=== PATIENT | female | born 1980 | race Caucasian/White ===

== ENCOUNTER 2017-02-27 14:31 | Inpatient (IN) | payer OTHER ==
[~2017-02-27] VITALS: Ht 160 cm; Wt 94.8 kg
[2017-02-27 15:15] VITALS: BP 118/75
[2017-02-27] MEDS ORDERED: PNV1TABL25 PO (16:19)
[2017-02-27] MEDS ORDERED: 0.9 % SODIUM CHLORIDE 10 ML DISP.SYRIN. IV PRN ×2 (16:30→19:15)
[2017-02-27] MEDS ORDERED: OXYTOCIN 30 UNIT/500 ML PREMIX 500 ML IV PRN ×2 (16:30→19:15)
[2017-02-27] MEDS ORDERED: CITRIC ACID/SODIUM CITRATE 30 ML SOLUTION. PO PRN (16:30)
[2017-02-27] MEDS ORDERED: MORPHINE PF 5 MG/10 ML VIAL. ONE (16:41)
[2017-02-27] MEDS ORDERED: fentaNYL PF VIAL 100 MCG/2 ML VIAL ONE (16:41)
[2017-02-27] MEDS: IV RINGERS,LACTATED 1000ML 1,000 ML IV PRN ×2 (16:48→19:22)
[2017-02-27 16:50] LABS: BILIRUBIN,URINE NEGATIVE (NEG); GLUCOSE,URINE NEGATIVE (NEG); NITRITE,URINE NEGATIVE (NEG); PROTEIN,URINE NEGATIVE (NEG-TRACE); UROBILINOGEN,URINE 0.2 mg/dL (0.2 mg/dL)
[2017-02-27 17:01] LABS: BACTERIA,URINE MANY /HPF (0-FEW); RBC,URINE 0 /HPF (0-2); SQUAMOUS EPITHELIAL CELL,UR MANY /LPF; WBC,URINE OCC /HPF (0-4)
[2017-02-27 17:37] LABS: HEMATOCRIT 34.9 % (36.0-47.0); HEMOGLOBIN 12.3 g/dL (12.0-15.5); RED BLOOD COUNT 3.82 x10^6/uL (3.50-5.40); RED CELL DISTRIBUTION WIDTH 14.6 % (11.5-14.5); WHITE BLOOD COUNT 8.6 x10^3/uL (4.0-11.0)
--- NOTE | 2017-02-27 17:47 | PDOC1 ---
OB - History Hx of Present Care: Good Care Ultrasounds: Normal mid trimester US Obstetrical Complications: None Medical Complications: None Past Family/Social History * Past Medical, Surgical, Family and Obstetric Histories reviewed from chart. Rubella: Immune RPR/VDRL: Negative GBS Status: Positive HBsAG: Negative OB - Chief Complaint & HPI Date of Admission: Date of Admission: Feb 27, 2017 at 14:31 Chief Complaint/History : 6 Para: 5 EGA: 38 Reason for admission: active labor Indication for : desires repeat Admission Nurse Assessment Rev: Yes Problems: OB - Admission Exam Physical Exam Vitals: VS - Last 72 Hours, by Label Date Time Temp Pulse Resp B/P (MAP) Pulse Ox O2 Delivery O2 Flow Rate FiO2 02/27/17 15:15 98.2 20 118/75 (89) Room Air 98.2 HEENT: Normal Heart: Regular Rate Lungs: Clear Abdomen: Gravid, Tender Extremities: Edema Reflexes: Normal Cervical Dilatation: Fingertip Effacement: 100% Station: -3 Membranes: Intact Heart Rate: Normal Accelerations: Accelerations Present Decelerations: No decelerations Contractions on Admission: 6-10 Minutes Apart Intensity: Firm Text A: 38 wks IUP Previous c/s x 5 Active labor GBS positive P: Admit for repeat c/s possible c-hysterectomy. Pt. counseled on risks, benefits and expectations. Counseled specifically on c-hysterectomy and placenta accreta. JEANE CATHERINE Jr, MD Feb 27, 2017 17:47
[2017-02-27] MEDS ORDERED: PHENYLEPHRINE in 0.9% NACL PF 1 MG/10 ML DISP.SYRIN. IV ONE ×2 (18:15→18:35)
[2017-02-27] MEDS ORDERED: LIDOCAINE 2% PF Vial for OR 5 ML VIAL. ONE (18:15)
[2017-02-27] MEDS ORDERED: OXYTOCIN 10 UNIT/ML VIAL. ONE ×3 (18:46→18:58)
[2017-02-27] MEDS ORDERED: SIMETHICONE 80 MG TAB.CHEW PO PRN (19:15)
[2017-02-27] MEDS ORDERED: ONDANSETRON PF 4 MG/2 ML VIAL. IV PRN (19:15)
[2017-02-27] MEDS ORDERED: KETOROLAC 30 MG/ML INJ. IV PRN (19:15)
[2017-02-27] MEDS ORDERED: MAG HYDROX/ALUMINUM HYD/SIMETH 30 ML ORAL.SUSP PO PRN (19:15)
[2017-02-27] MEDS ORDERED: ZOLPIDEM 5 MG TABLET. PO PRN (19:15)
[2017-02-27] MEDS ORDERED: diphenhydrAMINE ORAL ELIXIR 12.5 MG/5 ML ML PO PRN (19:15)
--- NOTE | 2017-02-27 19:15 | PDOC4 ---
OB Operative Note PRE OP DIAGNOSIS: Previoujs C- section (Active labor) POST OP DIAGNOSIS: Previous C- section (active labor) OPERATION PERFORMED: R [facility] Surgeon Dr. Sandra Parking Lot Supervisor Dr. Tan Anesthesia: Regional (Spinal) Blood Loss 800 ml Specimen placenta and OB Findings: Position (Breech), Sex (Male), (8/9), Weight (3380 Gram) Complications none Additional Remarks pt. JEANE Barkley Jr, MD Feb 27, 2017 19:15
[2017-02-27 20:15] VITALS: BP 121/75
--- NOTE | 2017-02-27 21:57 | OP ---
DATE OF SURGERY: PREOPERATIVE DIAGNOSES: 1. A 38 weeks intrauterine . 2. Previous x 5. 3. Active labor. POSTOPERATIVE DIAGNOSES: 1. A 38 weeks intrauterine . 2. Previous x 5. 3. Active labor. PROCEDURE: Repeat low-transverse section. SURGEON: Jeane Sandra MD HATCHERY SUPERVISOR: Dr. Tan. ANESTHESIA: Spinal. ESTIMATED BLOOD LOSS: 800 mL. COMPLICATIONS: None. FINDINGS: Viable male , Apgars 8 and 9, weight 3380 grams. Three-vessel cord placenta delivered manually. was in breech presentation as well, footling breech presentation. SUMMARY: A 36-year-old 6, para 5, 38 weeks, presented to the clinic with contractions and abdominal pain. The patient was sent to Labor and Delivery for evaluation and was found to be in active labor with regular contractions. She was counseled on the risks, benefits and expectations of repeat . She was also counseled on possible hysterectomy due to history being 5 or greater. She and her voiced clear understanding to proceed. DESCRIPTION OF PROCEDURE: The patient was taken to the surgery suite and placed in dorsal supine position. She was prepped with ChloraPrep and draped in a sterile fashion. After adequate anesthesia, a Pfannenstiel skin incision was made with scalpel down to the fascia. The fascia was extended laterally using Bovie cautery. There were multiple adhesions ____ down to the fascia as well as once past the fascia, the peritoneum was adhered to the fascia itself. There was a small window on the peritoneum, which we utilized to extend this incision inferiorly using blunt dissection and Metzenbaum scissors. Other adhesions were dissected away using Bovie cautery as well as Metzenbaum scissors. The Liam ring retractor was placed. Low transverse hysterotomy incision was made with a scalpel down to the amniotic sac. Hysterotomy incision was extended laterally and superiorly digitally. It was palpated that the was in footling breech presentation. Amniotomy was performed, which elicited a moderate amount of clear fluid. The feet were then grasped with fundal pressure. Infant was delivered all the way down to the subscapular region. The left arm was flexed and delivered. The infant was then rotated 180 degrees. The right arm was flexed and delivered with additional fundal pressure and the ___ procedure. The 's head was delivered in a smooth atraumatic manner. The was suctioned with a bulb syringe orally and nasally. The umbilical cord was clamped twice and cut. A viable male infant was handed to waiting nursing staff. Umbilical cord blood was then obtained. Three-vessel cord placenta was delivered manually. The uterus was exteriorized and cleared of clot and debris with a moist lap. The hysterotomy incision was reapproximated using 1-0 Vicryl suture in running locked fashion. Three [id number] sutures were placed for better hemostasis. The uterus palpated firm. The fallopian tubes and ovaries appeared normal bilaterally. Posterior cul-de-sac was cleared of clot and debris with moist lap. The uterus was then returned to the abdomen. The pericolic gutters were cleared of clot and debris with a moist lap. The hysterotomy incision was visualized and was hemostatic. Interceed was placed over the hysterotomy incision in an inverted T fashion. The Liam ring retractor was removed. The peritoneum was reapproximated using 1-0 Vicryl suture in a running fashion. The fascia was reapproximated from lateral to medial using 0 Vicryl suture. Insorb stapler was utilized to reapproximate the skin. The Prevena wound VAC was placed. The patient tolerated the procedure well and was taken to recovery room in stable condition. Sponge and needle count correct x 3. JEANE SANDRA MD DR: RAJ/gwyn JOB#: [id number] / [id number]
[2017-02-27 22:15] VITALS: BP 121/75
[2017-02-28] MEDS: oxyCODONE/APAP 5/325 1 TAB TABLET PO PRN ×3 (01:36→21:20)
[2017-02-28 02:30] VITALS: BP 116/81
[2017-02-28 05:15] VITALS: BP 116/81
[2017-02-28 06:19] LABS: BASO % 0 % (0-3); EOS % 1 % (0-3); HEMATOCRIT 34.1 % (36.0-47.0); HEMOGLOBIN 11.7 g/dL (12.0-15.5); LYMPH # 2.1 x10^3/uL (1.0-4.8); LYMPH % 17 % (24-48); MEAN CORPUSCULAR HEMOGLOBIN 32 pg (25-35); MEAN CORPUSCULAR HGB CONC 34 g/dL (31-37); MEAN CORPUSCULAR VOLUME 92 fL (79-100); MONO % 9 % (0-9); NEUT % 74 % (31-73); PLATELET COUNT 106 x10^3/uL (140-400); RED BLOOD COUNT 3.72 x10^6/uL (3.50-5.40); RED CELL DISTRIBUTION WIDTH 14.2 % (11.5-14.5); WHITE BLOOD COUNT 12.6 x10^3/uL (4.0-11.0)
[2017-02-28] MEDS ORDERED: FERROUS SULFATE 325 MG TABLET. PO SCH (08:00)
[2017-02-28] MEDS: IBUPROFEN 800 MG TABLET. PO PRN ×2 (09:29→17:27)
[2017-02-28 10:30] VITALS: BP 104/68
[2017-02-28] MEDS: DOCUSATE SODIUM 100 MG CAPSULE. PO PRN ×2 (12:25→21:18)
--- NOTE | 2017-02-28 12:56 | PDOC ---
OB Progress Note Date of Service 02/28/17 Time of Evaluation 1250 Notes Pt. feeling well. Pain controlled. Breast feeding. Lab Laboratory Tests Test 02/27/17 16:40 02/27/17 17:30 02/28/17 04:50 Urine Collection Type Unknown Urine Color Yellow Urine Clarity Clear Urine pH 6.0 Urine Specific [place] 1.010 Urine Protein Negative mg/dL (NEG-TRACE) Urine Glucose (UA) Negative mg/dL (NEG) Urine Ketones (Stick) Negative mg/dL (NEG) Urine Blood Negative (NEG) Urine Nitrite Negative (NEG) Urine Bilirubin Negative (NEG) Urine Urobilinogen Dipstick 0.2 mg/dL (0.2 mg/dL) Urine Leukocyte Esterase Negative (NEG) Urine RBC 0 /HPF (0-2) Urine WBC Occ /HPF (0-4) Urine Squamous Epithelial Cells Many /LPF Urine Bacteria Many /HPF (0-FEW) White Blood Count 8.6 x10^3/uL (4.0-11.0) 12.6 x10^3/uL (4.0-11.0) Red Blood Count 3.82 x10^6/uL (3.50-5.40) 3.72 x10^6/uL (3.50-5.40) Hemoglobin 12.3 g/dL (12.0-15.5) 11.7 g/dL (12.0-15.5) Hematocrit 34.9 % (36.0-47.0) 34.1 % (36.0-47.0) Mean Corpuscular Volume 91 fL (79-100) 92 fL (79-100) Mean Corpuscular Hemoglobin 32 pg (25-35) 32 pg (25-35) Mean Corpuscular Hemoglobin Concent 35 g/dL (31-37) 34 g/dL (31-37) Red Cell Distribution Width 14.6 % (11.5-14.5) 14.2 % (11.5-14.5) Platelet Count 111 x10^3/uL (140-400) 106 x10^3/uL (140-400) Neutrophils (%) (Auto) 74 % (31-73) Lymphocytes (%) (Auto) 17 % (24-48) Monocytes (%) (Auto) 9 % (0-9) Eosinophils (%) (Auto) 1 % (0-3) Basophils (%) (Auto) 0 % (0-3) Neutrophils # (Auto) 9.4 x10^3uL (1.8-7.7) Lymphocytes # (Auto) 2.1 x10^3/uL (1.0-4.8) Monocytes # (Auto) 1.1 x10^3/uL (0.0-1.1) Eosinophils # (Auto) 0.1 x10^3/uL (0.0-0.7) Basophils # (Auto) 0.0 x10^3/uL (0.0-0.2) Laboratory Tests Test 02/27/17 16:40 02/27/17 17:30 02/28/17 04:50 Urine Collection Type Unknown Urine Color Yellow Urine Clarity Clear Urine pH 6.0 Urine Specific [place] 1.010 Urine Protein Negative mg/dL (NEG-TRACE) Urine Glucose (UA) Negative mg/dL (NEG) Urine Ketones (Stick) Negative mg/dL (NEG) Urine Blood Negative (NEG) Urine Nitrite Negative (NEG) Urine Bilirubin Negative (NEG) Urine Urobilinogen Dipstick 0.2 mg/dL (0.2 mg/dL) Urine Leukocyte Esterase Negative (NEG) Urine RBC 0 /HPF (0-2) Urine WBC Occ /HPF (0-4) Urine Squamous Epithelial Cells Many /LPF Urine Bacteria Many /HPF (0-FEW) White Blood Count 8.6 x10^3/uL (4.0-11.0) 12.6 x10^3/uL (4.0-11.0) Red Blood Count 3.82 x10^6/uL (3.50-5.40) 3.72 x10^6/uL (3.50-5.40) Hemoglobin 12.3 g/dL (12.0-15.5) 11.7 g/dL (12.0-15.5) Hematocrit 34.9 % (36.0-47.0) 34.1 % (36.0-47.0) Mean Corpuscular Volume 91 fL (79-100) 92 fL (79-100) Mean Corpuscular Hemoglobin 32 pg (25-35) 32 pg (25-35) Mean Corpuscular Hemoglobin Concent 35 g/dL (31-37) 34 g/dL (31-37) Red Cell Distribution Width 14.6 % (11.5-14.5) 14.2 % (11.5-14.5) Platelet Count 111 x10^3/uL (140-400) 106 x10^3/uL (140-400) Neutrophils (%) (Auto) 74 % (31-73) Lymphocytes (%) (Auto) 17 % (24-48) Monocytes (%) (Auto) 9 % (0-9) Eosinophils (%) (Auto) 1 % (0-3) Basophils (%) (Auto) 0 % (0-3) Neutrophils # (Auto) 9.4 x10^3uL (1.8-7.7) Lymphocytes # (Auto) 2.1 x10^3/uL (1.0-4.8) Monocytes # (Auto) 1.1 x10^3/uL (0.0-1.1) Eosinophils # (Auto) 0.1 x10^3/uL (0.0-0.7) Basophils # (Auto) 0.0 x10^3/uL (0.0-0.2) Medications Current Medications Sodium Chloride (Normal Saline Flush) 3 ml QSHIFT PRN IV AFTER MEDS AND BLOOD DRAWS; Start 02/27/17 at 16:30 Ringer's Solution 1,000 ml @ 125 mls/hr Q8H PRN IV NAUSEA/VOMITING Last administered on 02/27/17 19:22; Start 02/27/17 at 16:30; Stop 02/28/17 at 08 :50; Status DC Citric Acid/ Sodium Citrate (Bicitra) 30 ml 1X PRN PRN PO DYSPEPSIA Last administered on 02/27/17 16:49; Start 02/27/17 at 16:30; Stop 02/28/17 at 16 :29 Cefazolin Sodium/ Dextrose 50 ml @ 100 mls/hr 1X ONCE IV Last administered on 02/27/17 16:49; Start 02/27/17 at 17:00; Stop 02/27/17 at 17:29; Status DC Oxytocin/Sodium Chloride 500 ml @ 0 mls/hr CONT PRN PRN IV Post delivery bleeding; Start 02/27/17 at 16:30 Morphine Sulfate (Morphine Preservative Free) 5 mg STK-MED ONCE .ROUTE ; Start 02/27/17 at 16:41; Stop 02/28/17 at 08:50; Status DC Fentanyl Citrate (Fentanyl 2ml Vial) 100 mcg STK-MED ONCE .ROUTE ; Start at 16:41; Stop 02/28/17 at 08:50; Status DC Phenylephrine HCl 1 mg STK-MED ONCE IV ; Start 02/27/17 at 18:15; Stop at 08:50; Status DC Lidocaine HCl (Lidocaine Pf 2% Vial) 5 ml STK-MED ONCE .ROUTE ; Start 02/27/17 at 18:15; Stop 02/28/17 at 08:50; Status DC Phenylephrine HCl 1 mg STK-MED ONCE IV ; Start 02/27/17 at 18:35; Stop at 08:50; Status DC Oxytocin (Pitocin) 10 unit STK-MED ONCE .ROUTE ; Start 02/27/17 at 18:46; Stop 02/28/17 at 08:50; Status DC Oxytocin (Pitocin) 10 unit STK-MED ONCE .ROUTE ; Start 02/27/17 at 18:58; Stop 02/28/17 at 08:50; Status DC Oxytocin (Pitocin) 10 unit STK-MED ONCE .ROUTE ; Start 02/27/17 at 18:58; Stop 02/28/17 at 08:50; Status DC Sodium Chloride (Normal Saline Flush) 3 ml QSHIFT PRN IV AFTER MEDS AND BLOOD DRAWS; Start 02/27/17 at 19:15 Oxytocin/Sodium Chloride 500 ml @ 125 mls/hr CONT PRN IV EXCESSIVE POST- BLEEDING; Start 02/27/17 at 19:15; Stop 02/28/17 at 03:14; Status DC Ibuprofen (Motrin) 800 mg PRN Q8HRS PRN PO INFLAMMATION Last administered on 09:29; Start 02/27/17 at 19:15 Ondansetron HCl (Zofran) 4 mg PRN Q6HRS PRN IV NAUSEA/VOMITING; Start at 19:15 Docusate Sodium (Colace) 100 mg PRN BID PRN PO CONSTIPATION Last administered on 02/28/17 12:25; Start 02/27/17 at 19:15 Al Hydroxide/Mg Hydroxide (Mylanta Plus Xs) 30 ml PRN Q4HRS PRN PO HEARTBURN / GAS; Start 02/27/17 at 19:15 Simethicone (Gas-X) 80 mg PRN AFTMEALHC PRN PO GAS / BLOATING; Start 02/27/17 at 19:15 Diphenhydramine HCl (Benadryl Oral Elixir) 12.5 mg PRN Q6HRS PRN PO ITCHING; Start 02/27/17 at 19:15 Ferrous Sulfate (Feosol) 325 mg BIDWMEALS PO ; Start 02/28/17 at 08:00; Stop 02/28/17 at 08:50; Status DC Zolpidem Tartrate (Ambien) 5 mg PRN QHS PRN PO INSOMNIA, MAY REPEAT X1; Start 02/27/17 at 19:15 Oxycodone/ Acetaminophen (Percocet 5/325) 2 tab PRN Q4HRS PRN PO MODERATE PAIN , SEVERE PAIN Last administered on 02/28/17t 12:25; Start 02/27/17 at 19:15 Ketorolac Tromethamine (Toradol) 30 mg PRN Q6HRS PRN IV PAIN; Start 02/27/17 at 19:15; Stop 03/04/17 at 19:14 Diphtheria/ Tetanus/Acell Pertussis (Boostrix) 0.5 ml ONCE ONCE VAX IM ; Start 03/01/17 at 09:00; Stop 03/01/17 at 09:01 Active Scripts Active Reported Tablet (Pnv Cmb#95/Ferrous Fumarate/Fa) 1 Each Tablet 1 Tab PO DAILY Exam Abd: soft, non tender, fundus firm Wound vac in place Assessment A: POD#1 s/p repeat c/s Plan of Care: Continue current Tx, Mgmt JEANE CATHERINE Jr, MD Feb 28, 2017 12:56
[2017-02-28 14:00] VITALS: BP 104/68
[2017-02-28 17:25] VITALS: BP 104/68
[2017-02-28 19:30] VITALS: BP 126/91
[2017-03-01] MEDS: IBUPROFEN 800 MG TABLET. PO PRN ×3 (03:13→21:04)
[2017-03-01] MEDS: oxyCODONE/APAP 5/325 1 TAB TABLET PO PRN ×6 (06:39→21:05)
[2017-03-01 06:46] VITALS: BP 116/83
[2017-03-01] MEDS ORDERED: DIPHTH,PERTUSS(ACELL),TET TOX 0.5 ML DISP.SYRIN. VAX IM ONE (09:00)
[2017-03-01 10:06] VITALS: BP 117/76
[2017-03-01] MEDS: DOCUSATE SODIUM 100 MG CAPSULE. PO PRN (10:19)
--- NOTE | 2017-03-01 12:20 | PDOC ---
OB Progress Note Date of Service 03/01/17 Time of Evaluation 1215 Notes Pt. feeling well. Pain controlled. Lochia minimal. Lab Laboratory Tests Test 02/27/17 16:40 02/27/17 17:30 02/28/17 04:50 Urine Collection Type Unknown Urine Color Yellow Urine Clarity Clear Urine pH 6.0 Urine Specific [place] 1.010 Urine Protein Negative mg/dL (NEG-TRACE) Urine Glucose (UA) Negative mg/dL (NEG) Urine Ketones (Stick) Negative mg/dL (NEG) Urine Blood Negative (NEG) Urine Nitrite Negative (NEG) Urine Bilirubin Negative (NEG) Urine Urobilinogen Dipstick 0.2 mg/dL (0.2 mg/dL) Urine Leukocyte Esterase Negative (NEG) Urine RBC 0 /HPF (0-2) Urine WBC Occ /HPF (0-4) Urine Squamous Epithelial Cells Many /LPF Urine Bacteria Many /HPF (0-FEW) White Blood Count 8.6 x10^3/uL (4.0-11.0) 12.6 x10^3/uL (4.0-11.0) Red Blood Count 3.82 x10^6/uL (3.50-5.40) 3.72 x10^6/uL (3.50-5.40) Hemoglobin 12.3 g/dL (12.0-15.5) 11.7 g/dL (12.0-15.5) Hematocrit 34.9 % (36.0-47.0) 34.1 % (36.0-47.0) Mean Corpuscular Volume 91 fL (79-100) 92 fL (79-100) Mean Corpuscular Hemoglobin 32 pg (25-35) 32 pg (25-35) Mean Corpuscular Hemoglobin Concent 35 g/dL (31-37) 34 g/dL (31-37) Red Cell Distribution Width 14.6 % (11.5-14.5) 14.2 % (11.5-14.5) Platelet Count 111 x10^3/uL (140-400) 106 x10^3/uL (140-400) RPR Titer Additional Testing Negative (Non Reactive) Neutrophils (%) (Auto) 74 % (31-73) Lymphocytes (%) (Auto) 17 % (24-48) Monocytes (%) (Auto) 9 % (0-9) Eosinophils (%) (Auto) 1 % (0-3) Basophils (%) (Auto) 0 % (0-3) Neutrophils # (Auto) 9.4 x10^3uL (1.8-7.7) Lymphocytes # (Auto) 2.1 x10^3/uL (1.0-4.8) Monocytes # (Auto) 1.1 x10^3/uL (0.0-1.1) Eosinophils # (Auto) 0.1 x10^3/uL (0.0-0.7) Basophils # (Auto) 0.0 x10^3/uL (0.0-0.2) Medications Current Medications Sodium Chloride (Normal Saline Flush) 3 ml QSHIFT PRN IV AFTER MEDS AND BLOOD DRAWS; Start 02/27/17 at 16:30 Ringer's Solution 1,000 ml @ 125 mls/hr Q8H PRN IV NAUSEA/VOMITING Last administered on 02/27/17 19:22; Start 02/27/17 at 16:30; Stop 02/28/17 at 08 :50; Status DC Citric Acid/ Sodium Citrate (Bicitra) 30 ml 1X PRN PRN PO DYSPEPSIA Last administered on 02/27/17 16:49; Start 02/27/17 at 16:30; Stop 02/28/17 at 16 :29; Status DC Cefazolin Sodium/ Dextrose 50 ml @ 100 mls/hr 1X ONCE IV Last administered on 02/27/17 16:49; Start 02/27/17 at 17:00; Stop 02/27/17 at 17:29; Status DC Oxytocin/Sodium Chloride 500 ml @ 0 mls/hr CONT PRN PRN IV Post delivery bleeding; Start 02/27/17 at 16:30 Morphine Sulfate (Morphine Preservative Free) 5 mg STK-MED ONCE .ROUTE ; Start 02/27/17 at 16:41; Stop 02/28/17 at 08:50; Status DC Fentanyl Citrate (Fentanyl 2ml Vial) 100 mcg STK-MED ONCE .ROUTE ; Start at 16:41; Stop 02/28/17 at 08:50; Status DC Phenylephrine HCl 1 mg STK-MED ONCE IV ; Start 02/27/17 at 18:15; Stop at 08:50; Status DC Lidocaine HCl (Lidocaine Pf 2% Vial) 5 ml STK-MED ONCE .ROUTE ; Start 02/27/17 at 18:15; Stop 02/28/17 at 08:50; Status DC Phenylephrine HCl 1 mg STK-MED ONCE IV ; Start 02/27/17 at 18:35; Stop at 08:50; Status DC Oxytocin (Pitocin) 10 unit STK-MED ONCE .ROUTE ; Start 02/27/17 at 18:46; Stop 02/28/17 at 08:50; Status DC Oxytocin (Pitocin) 10 unit STK-MED ONCE .ROUTE ; Start 02/27/17 at 18:58; Stop 02/28/17 at 08:50; Status DC Oxytocin (Pitocin) 10 unit STK-MED ONCE .ROUTE ; Start 02/27/17 at 18:58; Stop 02/28/17 at 08:50; Status DC Sodium Chloride (Normal Saline Flush) 3 ml QSHIFT PRN IV AFTER MEDS AND BLOOD DRAWS; Start 02/27/17 at 19:15 Oxytocin/Sodium Chloride 500 ml @ 125 mls/hr CONT PRN IV EXCESSIVE POST- BLEEDING; Start 02/27/17 at 19:15; Stop 02/28/17 at 03:14; Status DC Ibuprofen (Motrin) 800 mg PRN Q8HRS PRN PO INFLAMMATION Last administered on 03:13; Start 02/27/17 at 19:15 Ondansetron HCl (Zofran) 4 mg PRN Q6HRS PRN IV NAUSEA/VOMITING; Start at 19:15 Docusate Sodium (Colace) 100 mg PRN BID PRN PO CONSTIPATION Last administered on 03/01/17 10:19; Start 02/27/17 at 19:15 Al Hydroxide/Mg Hydroxide (Mylanta Plus Xs) 30 ml PRN Q4HRS PRN PO HEARTBURN / GAS; Start 02/27/17 at 19:15 Simethicone (Gas-X) 80 mg PRN AFTMEALHC PRN PO GAS / BLOATING; Start 02/27/17 at 19:15 Diphenhydramine HCl (Benadryl Oral Elixir) 12.5 mg PRN Q6HRS PRN PO ITCHING; Start 02/27/17 at 19:15 Ferrous Sulfate (Feosol) 325 mg BIDWMEALS PO ; Start 02/28/17 at 08:00; Stop 02/28/17 at 08:50; Status DC Zolpidem Tartrate (Ambien) 5 mg PRN QHS PRN PO INSOMNIA, MAY REPEAT X1; Start 02/27/17 at 19:15 Oxycodone/ Acetaminophen (Percocet 5/325) 2 tab PRN Q4HRS PRN PO MODERATE PAIN , SEVERE PAIN Last administered on 03/01/17t 10:19; Start 02/27/17 at 19:15 Ketorolac Tromethamine (Toradol) 30 mg PRN Q6HRS PRN IV PAIN; Start 02/27/17 at 19:15; Stop 03/04/17 at 19:14 Diphtheria/ Tetanus/Acell Pertussis (Boostrix) 0.5 ml ONCE ONCE VAX IM ; Start 03/01/17 at 09:00; Stop 03/01/17 at 09:01; Status DC Active Scripts Active Reported Tablet (Pnv Cmb#95/Ferrous Fumarate/Fa) 1 Each Tablet 1 Tab PO DAILY Exam Abd: soft, non tender, fundus firm Assessment PPD#1 s/p Plan of Care: Continue current Tx, JEANE Oneal Jr, MD Mar 01, 2017 12:19
[2017-03-01 14:15] VITALS: BP 118/79
[2017-03-01 17:45] VITALS: BP 141/88
[2017-03-01 21:09] VITALS: BP 136/91
[2017-03-02] MEDS: oxyCODONE/APAP 5/325 1 TAB TABLET PO PRN ×3 (02:21→11:40)
[2017-03-02] MEDS: IBUPROFEN 800 MG TABLET. PO PRN ×3 (04:57→20:20)
[2017-03-02 04:59] VITALS: BP 122/86
[2017-03-02] MEDS ORDERED: MAGNESIUM HYDROXIDE 2,400 MG/30 ML ORAL.SUSP. PO PRN (09:15)
--- NOTE | 2017-03-02 11:43 | PDOC ---
OB Progress Note Date of Service 03/02/17 Time of Evaluation 1145 Notes Pt. feeling well. No complaints. Medications Current Medications Sodium Chloride (Normal Saline Flush) 3 ml QSHIFT PRN IV AFTER MEDS AND BLOOD DRAWS; Start 02/27/17 at 16:30 Ringer's Solution 1,000 ml @ 125 mls/hr Q8H PRN IV NAUSEA/VOMITING Last administered on 02/27/17 19:22; Start 02/27/17 at 16:30; Stop 02/28/17 at 08 :50; Status DC Citric Acid/ Sodium Citrate (Bicitra) 30 ml 1X PRN PRN PO DYSPEPSIA Last administered on 02/27/17 16:49; Start 02/27/17 at 16:30; Stop 02/28/17 at 16 :29; Status DC Cefazolin Sodium/ Dextrose 50 ml @ 100 mls/hr 1X ONCE IV Last administered on 02/27/17 16:49; Start 02/27/17 at 17:00; Stop 02/27/17 at 17:29; Status DC Oxytocin/Sodium Chloride 500 ml @ 0 mls/hr CONT PRN PRN IV Post delivery bleeding; Start 02/27/17 at 16:30 Morphine Sulfate (Morphine Preservative Free) 5 mg STK-MED ONCE .ROUTE ; Start 02/27/17 at 16:41; Stop 02/28/17 at 08:50; Status DC Fentanyl Citrate (Fentanyl 2ml Vial) 100 mcg STK-MED ONCE .ROUTE ; Start at 16:41; Stop 02/28/17 at 08:50; Status DC Phenylephrine HCl 1 mg STK-MED ONCE IV ; Start 02/27/17 at 18:15; Stop at 08:50; Status DC Lidocaine HCl (Lidocaine Pf 2% Vial) 5 ml STK-MED ONCE .ROUTE ; Start 02/27/17 at 18:15; Stop 02/28/17 at 08:50; Status DC Phenylephrine HCl 1 mg STK-MED ONCE IV ; Start 02/27/17 at 18:35; Stop at 08:50; Status DC Oxytocin (Pitocin) 10 unit STK-MED ONCE .ROUTE ; Start 02/27/17 at 18:46; Stop 02/28/17 at 08:50; Status DC Oxytocin (Pitocin) 10 unit STK-MED ONCE .ROUTE ; Start 02/27/17 at 18:58; Stop 02/28/17 at 08:50; Status DC Oxytocin (Pitocin) 10 unit STK-MED ONCE .ROUTE ; Start 02/27/17 at 18:58; Stop 02/28/17 at 08:50; Status DC Sodium Chloride (Normal Saline Flush) 3 ml QSHIFT PRN IV AFTER MEDS AND BLOOD DRAWS; Start 02/27/17 at 19:15 Oxytocin/Sodium Chloride 500 ml @ 125 mls/hr CONT PRN IV EXCESSIVE POST- BLEEDING; Start 02/27/17 at 19:15; Stop 02/28/17 at 03:14; Status DC Ibuprofen (Motrin) 800 mg PRN Q8HRS PRN PO INFLAMMATION Last administered on 11:40; Start 02/27/17 at 19:15 Ondansetron HCl (Zofran) 4 mg PRN Q6HRS PRN IV NAUSEA/VOMITING; Start at 19:15 Docusate Sodium (Colace) 100 mg PRN BID PRN PO CONSTIPATION Last administered on 03/01/17t 10:19; Start 02/27/17 at 19:15 Al Hydroxide/Mg Hydroxide (Mylanta Plus Xs) 30 ml PRN Q4HRS PRN PO HEARTBURN / GAS; Start 02/27/17 at 19:15 Simethicone (Gas-X) 80 mg PRN AFTMEALHC PRN PO GAS / BLOATING; Start 02/27/17 at 19:15 Diphenhydramine HCl (Benadryl Oral Elixir) 12.5 mg PRN Q6HRS PRN PO ITCHING; Start 02/27/17 at 19:15 Ferrous Sulfate (Feosol) 325 mg BIDWMEALS PO ; Start 02/28/17 at 08:00; Stop 02/28/17 at 08:50; Status DC Zolpidem Tartrate (Ambien) 5 mg PRN QHS PRN PO INSOMNIA, MAY REPEAT X1; Start 02/27/17 at 19:15 Oxycodone/ Acetaminophen (Percocet 5/325) 2 tab PRN Q4HRS PRN PO MODERATE PAIN , SEVERE PAIN Last administered on 03/02/17t 11:40; Start 02/27/17 at 19:15 Ketorolac Tromethamine (Toradol) 30 mg PRN Q6HRS PRN IV PAIN; Start 02/27/17 at 19:15; Stop 03/04/17 at 19:14 Diphtheria/ Tetanus/Acell Pertussis (Boostrix) 0.5 ml ONCE ONCE VAX IM Last administered on 03/01/17 17:49; Start 03/01/17 at 09:00; Stop 03/01/17 at 09 :01; Status DC Magnesium Hydroxide (Milk Of Magnesia) 2,400 mg PRN DAILY PRN PO CONSTIPATION Last administered on 03/02/17 09:16; Start 03/02/17 at 09:15 Active Scripts Active Reported Tablet (Pnv Cmb#95/Ferrous Fumarate/Fa) 1 Each Tablet 1 Tab PO DAILY Exam Abd: soft, non tender, fundus firm Wound vac in place Assessment POD#2 s/p repeat c/s Plan of Care: Continue current Tx, Mgmt JEANE CATHERINE Jr, MD Mar 02, 2017 11:43
[2017-03-02 11:56] VITALS: BP 126/76
[2017-03-02 15:00] VITALS: BP 120/70
[2017-03-02 19:20] VITALS: BP 120/80
[2017-03-02 22:57] VITALS: BP 125/89
[2017-03-03] MEDS: IBUPROFEN 800 MG TABLET. PO PRN ×2 (05:34→13:09)
[2017-03-03] MEDS: oxyCODONE/APAP 5/325 1 TAB TABLET PO PRN ×2 (05:35→13:10)
[2017-03-03 05:53] VITALS: BP 129/92
[2017-03-03 10:42] VITALS: BP 122/87
[2017-03-03 13:16] VITALS: BP 138/90
--- NOTE | 2017-03-03 13:24 | DISCH ---
DISCHARGE INSTRUCTIONS Condition on Discharge Condition on Discharge: Stable Activity After Discharge Activity Instructions for Disc: Activity as tolerated Lifting Instructions after Dis: No heavy lifting Driving Instructions after Dis: Do not drive today Diet after Discharge Diet after Discharge: Regular Contacting the DRMelissa after DC Call your doctor for: Concerns you may have Follow-Up Follow up with: Dr. Sandra in 2 weeks. JEANE SANDRA Jr, MD Mar 03, 2017 13:24
--- NOTE | 2017-03-03 13:24 | PDOC ---
OB Progress Note Date of Service 03/03/17 Time of Evaluation 1320 Notes Pt. feeling well. No complaints. Medications Current Medications Sodium Chloride (Normal Saline Flush) 3 ml QSHIFT PRN IV AFTER MEDS AND BLOOD DRAWS; Start 02/27/17 at 16:30; Stop 03/02/17 at 14:41; Status DC Ringer's Solution 1,000 ml @ 125 mls/hr Q8H PRN IV NAUSEA/VOMITING Last administered on 02/27/17 19:22; Start 02/27/17 at 16:30; Stop 02/28/17 at 08 :50; Status DC Citric Acid/ Sodium Citrate (Bicitra) 30 ml 1X PRN PRN PO DYSPEPSIA Last administered on 02/27/17 16:49; Start 02/27/17 at 16:30; Stop 02/28/17 at 16 :29; Status DC Cefazolin Sodium/ Dextrose 50 ml @ 100 mls/hr 1X ONCE IV Last administered on 02/27/17 16:49; Start 02/27/17 at 17:00; Stop 02/27/17 at 17:29; Status DC Oxytocin/Sodium Chloride 500 ml @ 0 mls/hr CONT PRN PRN IV Post delivery bleeding; Start 02/27/17 at 16:30; Stop 03/02/17 at 14:41; Status DC Morphine Sulfate (Morphine Preservative Free) 5 mg STK-MED ONCE .ROUTE ; Start 02/27/17 at 16:41; Stop 02/28/17 at 08:50; Status DC Fentanyl Citrate (Fentanyl 2ml Vial) 100 mcg STK-MED ONCE .ROUTE ; Start at 16:41; Stop 02/28/17 at 08:50; Status DC Phenylephrine HCl 1 mg STK-MED ONCE IV ; Start 02/27/17 at 18:15; Stop at 08:50; Status DC Lidocaine HCl (Lidocaine Pf 2% Vial) 5 ml STK-MED ONCE .ROUTE ; Start 02/27/17 at 18:15; Stop 02/28/17 at 08:50; Status DC Phenylephrine HCl 1 mg STK-MED ONCE IV ; Start 02/27/17 at 18:35; Stop at 08:50; Status DC Oxytocin (Pitocin) 10 unit STK-MED ONCE .ROUTE ; Start 02/27/17 at 18:46; Stop 02/28/17 at 08:50; Status DC Oxytocin (Pitocin) 10 unit STK-MED ONCE .ROUTE ; Start 02/27/17 at 18:58; Stop 02/28/17 at 08:50; Status DC Oxytocin (Pitocin) 10 unit STK-MED ONCE .ROUTE ; Start 02/27/17 at 18:58; Stop 02/28/17 at 08:50; Status DC Sodium Chloride (Normal Saline Flush) 3 ml QSHIFT PRN IV AFTER MEDS AND BLOOD DRAWS; Start 02/27/17 at 19:15; Stop 03/02/17 at 14:41; Status DC Oxytocin/Sodium Chloride 500 ml @ 125 mls/hr CONT PRN IV EXCESSIVE POST- BLEEDING; Start 02/27/17 at 19:15; Stop 02/28/17 at 03:14; Status DC Ibuprofen (Motrin) 800 mg PRN Q8HRS PRN PO INFLAMMATION Last administered on t 13:09; Start 02/27/17 at 19:15 Ondansetron HCl (Zofran) 4 mg PRN Q6HRS PRN IV NAUSEA/VOMITING; Start at 19:15; Stop 03/02/17 at 14:41; Status DC Docusate Sodium (Colace) 100 mg PRN BID PRN PO CONSTIPATION Last administered on 03/01/17t 10:19; Start 02/27/17 at 19:15 Al Hydroxide/Mg Hydroxide (Mylanta Plus Xs) 30 ml PRN Q4HRS PRN PO HEARTBURN / GAS; Start 02/27/17 at 19:15 Simethicone (Gas-X) 80 mg PRN AFTMEALHC PRN PO GAS / BLOATING; Start 02/27/17 at 19:15 Diphenhydramine HCl (Benadryl Oral Elixir) 12.5 mg PRN Q6HRS PRN PO ITCHING; Start 02/27/17 at 19:15 Ferrous Sulfate (Feosol) 325 mg BIDWMEALS PO ; Start 02/28/17 at 08:00; Stop 02/28/17 at 08:50; Status DC Zolpidem Tartrate (Ambien) 5 mg PRN QHS PRN PO INSOMNIA, MAY REPEAT X1; Start 02/27/17 at 19:15 Oxycodone/ Acetaminophen (Percocet 5/325) 2 tab PRN Q4HRS PRN PO MODERATE PAIN , SEVERE PAIN Last administered on 03/03/17 13:10; Start 02/27/17 at 19:15 Ketorolac Tromethamine (Toradol) 30 mg PRN Q6HRS PRN IV PAIN; Start 02/27/17 at 19:15; Stop 03/02/17 at 14:41; Status DC Diphtheria/ Tetanus/Acell Pertussis (Boostrix) 0.5 ml ONCE ONCE VAX IM Last administered on 03/01/17 17:49; Start 03/01/17 at 09:00; Stop 03/01/17 at 09 :01; Status DC Magnesium Hydroxide (Milk Of Magnesia) 2,400 mg PRN DAILY PRN PO CONSTIPATION Last administered on 03/02/17 09:16; Start 03/02/17 at 09:15 Active Scripts Active Reported Tablet (Pnv Cmb#95/Ferrous Fumarate/Fa) 1 Each Tablet 1 Tab PO DAILY Exam Abd: soft, non tender, fundus firm Wound vac in place. Assessment POD#3 s/p c/s Plan of Care: See new orders (D/ c home.) JEANE CATHERINE Jr, MD Mar 03, 2017 13:24
[2017-03-03] MEDS ORDERED: DOCU-109 PO (13:27)
[2017-03-03] MEDS ORDERED: OXYC-323 PO (13:27)
[2017-03-03] MEDS ORDERED: IBUP-1060 PO (13:27)
== END 2017-03-03 13:50 | disposition home or self-care (01) | DRG 766 ==
LOC: OBSVTOIN 14:31 → 3 SO LND 14:31 → 3 NORTH 22:17
PROVIDERS: ADMIT Obstetrics & Gynecology; ATTEND Obstetrics & Gynecology
PROC: 10D00Z1 Extraction of Products of Conception, Low, Open Approach (ICD-10-PCS; principal; 2017-02-27)
DX: O34.211 Maternal care for low transverse scar from previous cesarean delivery (principal); O32.8XX0 Maternal care for other malpresentation of fetus, not applicable or unspecified; O99.824 Streptococcus B carrier state complicating childbirth; Z37.0 Single live birth; Z3A.38 38 weeks gestation of pregnancy
CPT/HCPCS: 36415; 81001; 85025; 85027; 86593; 86850; 86900; 86901; 86920; 87086; 90715; J0690; J2270; J2370; J2590; J3010; J7030; J7120; J2001